=== PATIENT | male | born 2000 | race Caucasian/White ===

== ENCOUNTER → 2024-12-02 10:15 | Outpatient (REF) | payer OTHER, SELFPAY ==
[2024-12-02 13:57] LABS: Hepatitis B Surface Antibody Positive
[2024-12-04 15:33] LABS: Quantiferon Mitogen minus NIL 9.96 IU/mL; Quantiferon NIL 0.04 IU/mL; Quantiferon Plus TB1 minus NIL 0.01 IU/mL (<=0.34); Quantiferon TB Gold Plus Negative (Negative)
== END ==
LOC: REG 10:15
PROVIDERS: ATTENDING PHYSICIAN Nurse Practitioner
DX: Z23 Encounter for immunization (principal)
CPT/HCPCS: 36415; 86480; 86706

== ENCOUNTER → 2025-06-12 09:49 | Outpatient (REF) | payer OTHER, SELFPAY ==
[2025-06-12 11:59] LABS: Hepatitis B Surface Antigen Negative (Negative)
[2025-06-12 12:16] LABS: Hepatitis C Antibody Negative (Negative)
== END ==
LOC: OHS 09:49
PROVIDERS: ATTENDING PHYSICIAN Nurse Practitioner Adult Health
DX: Z57.8 Occupational exposure to other risk factors (principal)
CPT/HCPCS: 36415; 86706; 86803; 87340; 87389